=== PATIENT | male | born 1990 | race Caucasian/White ===

== ENCOUNTER 2016-12-29 18:16 | Emergency (ER) | payer OTHER, BC ==
[~2016-12-29] VITALS: Ht 177.8 cm; Wt 68.0 kg
[2016-12-29 18:26] VITALS: TEMP 36.6; Ht 177.8 cm; Wt 68.0 kg
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
[2016-12-29] MEDS ORDERED: ACETAMINOPHEN 500 MG TAB PO STA (19:32)
[2016-12-29] MEDS ORDERED: IBUPROFEN 600 MG TAB PO STA (19:32)
[2016-12-29] MEDS ORDERED: MoRPHine SULFATE 4 MG/ML 1 ML CARP\\VIAL IV STA (19:32)
[2016-12-29] MEDS ORDERED: DIPHTHERIA/TETANUS/PERTUSSIS 0.5 ML SYR/VIAL IM. ONE (19:45)
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
[2016-12-29 22:04] VITALS: BP 141/69; PULSE 108; O2SAT 99
== END 2016-12-29 22:06 | disposition home or self-care (01) ==
LOC: EDBD 18:16 → C.EDB 18:18
DX: M25.532 Pain in left wrist (principal); T14.8 Other injury of unspecified body region; V29.9XXA Motorcycle rider (driver) (passenger) injured in unspecified traffic accident, initial encounter; Z23 Encounter for immunization